=== PATIENT | male | born 1980 | race African-American/Black ===

== ENCOUNTER 2017-02-25 22:11 | Inpatient (IN) | payer BC ==
[~2017-02-25] VITALS: Ht 175.3 cm; Wt 83.9 kg
--- NOTE | ~2017-02-25 | PA ---
Unit #: [id number] #: [id number] Patient: JUSTIN DELEON [id number] [facility] [address] [place] [address] [id number] I MR#: [id number] NAME: JUSTIN DELEON ROOM: P179 Age: 36 Sex: M Admission Date: 02/26/2017 : 1980 Date of Assessment: Attending Physician: Thom Gusman M.D. Admitting Physician: Thom Gusman M.D. Primary Care Physician: Primary Care Physician No PSYCHIATRIC ASSESSMENT INFORMANTS The patient reliability, fair informant and chart reliability, good. CHIEF COMPLAINT Suicidal ideation and depression. HISTORY OF PRESENT ILLNESS Justin Deleon is a 36-year-old male, presented with the above-mentioned complaint. The patient reported that he in 2015. The patient reports he began to see current girlfriend and on 10/29/2015, she had an and nothing has been the same since and reports that this happened a year ago. The patient reports that it still haunts him and keeps thinking about the baby, would be 7 months old now. The patient feeling sad, depressed, feeling of hopelessness and worthlessness, a suicidal ideation. The patient currently living with girlfriend. The patient reported thoughts of overdosing on alcohol and heart medication. The patient reports that he is having conflict with relationship with his girlfriend due to having an in 2015 and has not been able to handle it very well when he does not feel that he can talk to her about it. The patient denied any homicidal ideation or any hallucination. Needing inpatient admission at this time for psychiatric stabilization. PAST PSYCHIATRIC HISTORY Unremarkable for any history of any previous treatment. FAMILY HISTORY AND SOCIAL HISTORYD The patient lives with girlfriend. Family psychiatric illness is remarkable for history of mental illness in mother. No known history of any abuse. No legal charges. MEDICAL HISTORY Remarkable for heart problem. The patient is currently on medication for that and also hypertension. Musculoskeletal; muscle strength and tone, no atrophy or abnormal movement. Gait normal. MEDICATION HISTORY The patient is on aspirin, losartan, atorvastatin, and metoprolol. ALLERGIES No known drug allergies. SUBSTANCE ABUSE HISTORY The patient reported alcohol use, age of onset 18 and marijuana, age of Unit #: [id number] #: [id number] Patient: JUSTIN DELEON onset 18. The patient denied any history of blackout, HIV, hepatitis, withdrawal symptom, or IV drug use. No recent use. REVIEW OF SYSTEMS HEENT: Eyes, clear. Ears, nose, mouth, and throat; clear. CARDIOVASCULAR: Unremarkable. RESPIRATORY: Unremarkable. GI: Unremarkable. : Unremarkable. SKIN: Unremarkable. LYMPH NODE: Unremarkable. NEUROLOGIC: Unremarkable. ENDOCRINE: Unremarkable. HEMATOLOGIC: Unremarkable. ALLERGIC/IMMUNOLOGIC: Unremarkable. MUSCULOSKELETAL: Muscle strength and tone, no atrophy or abnormal movement. Gait normal. MENTAL STATUS EXAMINATION CONSTITUTIONAL: Measurement of vital signs; temperature 97.6, heart rate 75, respiratory rate 16, and blood pressure 124/77. Height 5 feet 9 inches and weight 185 pounds. GENERAL APPEARANCE: The patient dressed casually. The patient did not show any facial deformity. MUSCULOSKELETAL: Please see above. PSYCHIATRIC EXAMINATION Description of speech; regular rate, normal volume, normal articulation, coherent, and spontaneous. Description of thought process, goal directed. Description of association, intact. Description of abnormal psychotic thinking; the patient denied any hallucinations or delusions. Mood lability, depression, and suicidal ideation. Description of the patient's judgment: Concerning everyday activity, poor. Social situation, poor. Concerning psychiatric condition, poor. Complete mental status examination; oriented in time, place, and person. Recent and remote memory, fair. Attention span and concentration, fair. Language, able to name object and repeat phrases. Fund of knowledge, aware of current event and passive vocabulary intact. Mood and affect, sad and dysphoric. Insight and judgment, fair to poor. ASSETS AND LIABILITIES Assets, the patient is articulate and able to take care of his ADL. Liability, history of depression. ADMITTING DIAGNOSES Psychiatric: Major depressive disorder, recurrent, severe, F33.2. Secondary diagnosis: Deferred. Medical diagnoses: Hypertension, high cholesterol, and heart problems. Stressors: Psychosocial stressors. PSYCHIATRIC PLAN AND TREATMENT GOAL AND DISCHARGE PLAN 1. Advised to admit the patient on the inpatient unit. Provide safe, supportive, and structured environment. 2. Ordered labs; CBC, CMP, UA, and UDS. Unit #: [id number] #: [id number] Patient: JUSTIN DELEON 3. Precaution for self-harm and SP1 precaution. 4. Advised to resume home medication and plan to consider medication such as Celexa and Desyrel for depression and sleep. The patient to attend group therapy, individual therapy, and structured milieu. TREATMENT GOAL To attain euthymic mood, gain insight into his problem, and learn coping skills. DISCHARGE PLAN Plan to stabilize the patient and consider followup in outpatient program. ESTIMATED LENGTH OF STAY 3 to 5 days. Dictated by... Thom Gusman M.D. CASEY/anderson TD: 02/26/2017 17:35 JOB #: [id number] PSYCHIATRIC ASSESSMENT Page 1 of 1 X Thom Gusman MD X PSYCHIATRIC ASSESSMENT
--- NOTE | ~2017-02-25 | DS ---
Unit #: [id number] #: [id number] Patient: SANJAY DELEON [id number] [place] [address] [id number] I MR#: [id number] NAME: SANJAY DELEON ROOM: P179 Age: 36 Sex: M Admission Date: 02/26/2017 : 1980 Discharge Date: 02/27/2017 Attending Physician: Thom Gusman M.D. Primary Care Physician: Primary Care Physician No DISCHARGE SUMMARY REASON FOR ADMISSION Depression and suicidal ideation. DIAGNOSTIC STUDIES LABORATORY RESULTS: Remarkable for glucose 119. HOSPITAL COURSE The patient was admitted to inpatient unit on 02/26/2017 and discharged on 02/27/2017. The patient was treated on the inpatient unit with group therapy, individual therapy, and medication management. The patient was responsive to treatment, able to contract for safety. The patient was also treated with psychoeducation, expressive therapy, and structured milieu. The patient was subsequently discharged with a plan to follow up in outpatient program. DISCHARGE MEDICATIONS Vistaril 25 mg t.i.d. for anxiety, Celexa 20 mg at bedtime for depression, trazodone 50 mg at bedtime for sleep. The patient to continue with Cozaar 25 mg b.i.d. for hypertension, Lopressor 25 mg b.i.d. for hypertension, Lipitor 40 mg at bedtime for high cholesterol, and aspirin 81 mg daily for blood thinner. DISCHARGE DIAGNOSES Psychiatric: Major depressive disorder, recurrent, severe, F33.2. Secondary diagnosis: Deferred. Medical diagnosis: Hypertension, high cholesterol, heart problems. Stressors: Psychosocial stressors. DISCHARGE INSTRUCTIONS The patient to follow up in outpatient clinic as per social media analyst. CONDITION ON DISCHARGE The patient was pleasant and cooperative. Denied any psychotic symptom or any suicidal ideation. PROGNOSIS Guarded. DIET AND ACTIVITY As tolerated. Unit #: [id number] #: [id number] Patient: SANJAY DELEON Dictated by... Connor Francis/anderson TD: 02/27/2017 15:22 JOB #: [id number] DISCHARGE SUMMARY Page 1 of 1 X Thom Gusman MD DISCHARGE SUMMARY
--- NOTE | ~2017-02-25 | HP ---
Unit #: [id number] #: [id number] Patient: JUSTIN DELEON [id number] [place] [address] [id number] MR#: [id number] NAME: JUSTIN DELEON ROOM: P179 Age: 36 Sex: M Admission Date: 02/26/2017 : 1980 Attending Physician: Thom Gusman M.D. Admitting Physician: Thom Gusman M.D. Primary Care Physician: Primary Care Physician No HISTORY AND PHYSICAL HISTORY OF PRESENT ILLNESS Justin is a 36-year-old male admitted on 02/26/2017 to [facility] for depression with suicidal ideation. PAST MEDICAL HISTORY Dilated cardiomyopathy diagnosed in December 2016. PAST SURGICAL HISTORY None. SOCIAL HISTORY Denies tobacco use, reports rare occasional alcohol use and occasional marijuana use. He is currently and living with his girlfriend. FAMILY HISTORY Noncontributory. REVIEW OF SYSTEMS CONSTITUTIONAL: No fever or chills. HEENT: Denies any sore throat, ear pain or runny nose. CARDIOVASCULAR: Denies chest pain, irregular heart rhythm or palpitations. CHEST: Denies shortness of breath or cough. No hemoptysis. GASTROINTESTINAL: Denies nausea, vomiting, diarrhea or chronic constipation. ENDOCRINE: Denies history of increased thirst or urination. No recent significant weight loss or gain. GENITOURINARY: Denies dysuria, frequency, or hematuria. SKIN: Denies any rashes. HEMATOLOGIC: Denies history of increased bleeding or bruising. MUSCULOSKELETAL: Denies any hot, swollen joints. No generalized muscle pain. NEUROLOGIC: Denies problems with vision or speech. No frequent, severe headaches. No numbness, tingling or weakness in any extremities. Denies loss of bladder or bowel control. CURRENT MEDICATIONS Losartan, Lopressor, Lipitor. ALLERGIES Shellfish. Unit #: [id number] #: [id number] Patient: JUSTIN DELEON PHYSICAL EXAMINATION GENERAL: Alert, oriented, in no acute distress. VITAL SIGNS: Blood pressure 129/79, heart rate 58. HEIGHT: 5 foot 9 inches. WEIGHT: 185 pounds. SKIN: Warm and dry without rash or lesion. HEENT: Normocephalic. TMs not viewed. Oral and nasal passages clear. Conjunctivae clear. PERRLA. EOMs intact. NECK: Supple without lymphadenopathy or thyromegaly. HEART: Regular rate and rhythm without murmur. LUNGS: Clear. ABDOMEN: Soft, nontender, without masses or hepatosplenomegaly. : Not done. EXTREMITIES: No evidence of cyanosis, clubbing or edema. Moves all without focal deficit. NEUROLOGICAL: Grossly within normal limits. Cranial Nerves: II: Visual luna are intact. III, IV AND : Extraocular movements are intact. Pupils are equal, round and reactive to light. V: Facial sensation is grossly normal. VII: Facial movements and expression are normal. VIII: Auditory acuity grossly intact. IX, X: Uvula is midline. Phonation is normal. XI: Patient shrugs shoulders and turns head normally. XII: Tongue protrudes in the midline. Sensory and Motor Function: Sensory and motor sensation is grossly normal. Motor: moves all extremities well. Coordination: Gait is normal. Deep Tendon Reflexes: Intact. IMPRESSION 1. Psychiatric admission. 2. Dilated cardiomyopathy. RECOMMENDATIONS Psychiatric, per psychiatrist. MEDICAL: I see no contraindications to participating in facility's activities. MEDICAL PROGNOSIS Good. MEDICAL CONDITION Stable. Dictated by... Tyrone Mclean/sonam TD: 02/26/2017 20:50 JOB #: [id number] Unit #: [id number] #: [id number] Patient: JUSTIN DELEON HISTORY AND PHYSICAL Page 1 of 1 X CHRISTIANE HURLEY APRN X HISTORY AND PHYSICAL
[2017-02-26 10:31] LABS: ALBUMIN SERUM 3.8 g/dL (3.5-5.0); BILIRUBIN,TOTAL 0.7 mg/dL (0.2-2.0); BUN/CREATININE RATIO 12.3; CALCIUM SERUM 9.4 mg/dL (8.4-10.2); CREATININE SERUM 1.3 mg/dL (0.6-1.4); GLOM FILT RATE Estimated 82.5 mL/min (>60); POTASSIUM 3.9 mmol/L (3.5-5.1); PROTEIN TOTAL SERUM 6.1 g/dL (6.0-8.3)
[2017-02-26 12:35] LABS: BASOPHIL% 0.4 % (0-2.5); EOSINOPHIL# 0.2 X10e3 (0-0.7); EOSINOPHIL% 3.2 % (0.0-7.0); HEMATOCRIT 38.7 % (38.0-50.0); LYMPHOCYTE# 2.2 X10e3 (1.0-3.5); LYMPHOCYTE% 36.8 % (17.0-45.0); MEAN CELL VOLUME 86.5 FL (83-96); MEAN CORPUSCULAR HGB CONC 33.5 g/dL (30-36); MEAN PLATELET VOLUME 9.2 FL (6.5-11.5); MONOCYTE# 0.4 X10e3 (0-1.0); MONOCYTE% 5.9 % (3.0-12.0); NEUTROPHIL# 3.3 X10e3 (1.5-7.1); NEUTROPHIL% 53.7 % (40-75); PLATELET COUNT 124 X10e3 (140-420); RED BLOOD COUNT 4.47 X10e (3.90-5.60); RED CELL DISTRIBUTION WIDTH 13.2 % (11.0-15.5); WHITE BLOOD COUNT 6.1 X10e3 (4.0-10.5)
[2017-02-26 12:38] LABS: DIFF IND NO
[2017-02-27 10:41] LABS: AMPHETAMINE NEG (NEG); BARBITURATES NEG (NEG); BENZODIAZEPINES NEG (NEG); COCAINE NEG (NEG); MARIJUANA POS (NEG); OPIATES NEG (NEG); TRICYCLIC ANTIDEPRESSANTS NEG (NEG); U METHADONE NEG (NEG)
[2017-02-27 10:42] LABS: URINE APPEARANCE CLOUDY; URINE BILIRUBIN NEG (NEG); URINE BLOOD NEG (NEG); URINE COLOR YELLOW; URINE GLUCOSE NORM (NORM); URINE KETONE NEG (NEG); URINE LEUKOCYTE ESTERASE NEG (NEG); URINE NITRATE NEG (NEG); URINE PROTEIN NEG (NEG); URINE UROBILINOGEN NORM (NORM)
== END 2017-02-27 14:30 | DRG 885 ==
LOC: P1E 02-26 01:30
PROVIDERS: Psychiatry & Neurology Psychiatry
DX: F33.2 Major depressive disorder, recurrent severe without psychotic features (principal); I42.0 Dilated cardiomyopathy; R45.851 Suicidal ideations; I10 Essential (primary) hypertension; E78.00 Pure hypercholesterolemia, unspecified
CPT/HCPCS: 80053; 80307; 81003; 85025